=== PATIENT | male | born 1960 | race Caucasian/White ===

== ENCOUNTER 2018-07-05 20:22 | Emergency (ER) | payer MEDICAID ==
[~2018-07-05] VITALS: Ht 177.8 cm; Wt 75.0 kg
[~2018-07-05 20:22] MED LIST: DOCU250C91 PO; FLUO20SO2 PO; MVITFE PO; TRAZ-220 PO
[2018-07-05 21:26] LABS: BASOPHILS % (AUTO) 0.6 % (0.0-2.0); EOSINOPHILS % (AUTO) 1.4 % (1.0-6.0); HEMATOCRIT 38.6 % (41-53); HEMOGLOBIN 13.2 g/dL (13.5-17.5); LYMPHOCYTES # (AUTO) 1.6 K/uL (1.0-4.8); LYMPHOCYTES % (AUTO) 21.9 % (22.0-44.0); MEAN CORPUSCULAR HGB CONC 34.1 G/dL (31.0-37.0); MEAN CORPUSCULAR VOLUME 103 fL (80-100); MONOCYTES # (AUTO) 1.1 K/uL (0.1-1.0); MONOCYTES % (AUTO) 14.8 % (2.0-9.0); NEUTROPHILS # (AUTO) 4.5 K/uL (1.8-7.7); NEUTROPHILS % (AUTO) 61.3 % (40.0-70.0); PLATELET COUNT (AUTO) 271 K/uL (150-450); RED BLOOD CELL COUNT(AUTO) 3.76 MIL/uL (4.50-5.90)
[2018-07-05 21:42] LABS: AMPHET/METH SCREEN,URINE NEGATIVE (NEGATIVE); BARBITURATE SCREEN, URINE NEGATIVE (NEGATIVE); BENZODIAZEPINES SCREEN,URINE NEGATIVE (NEGATIVE); CANNABINOID SCREEN,URINE POSITIVE (NEGATIVE); COCAINE SCREEN,URINE NEGATIVE (NEGATIVE); METHADONE SCREEN, URINE NEGATIVE (NEGATIVE); OPIATE SCREEN,URINE NEGATIVE (NEGATIVE)
[2018-07-05 21:43] LABS: PHENCYCLIDINE SCREEN,URINE NEGATIVE (NEGATIVE)
[2018-07-05 22:26] LABS: ALANINE AMINOTRANSFERASE 66 U/L (12-78); ALBUMIN 3.3 g/dL (3.4-5.0); ALKALINE PHOSPHATASE 130 U/L (46-116); ANION GAP 10 mmol/L (8-16); ASPARTATE AMINOTRANSFERASE 50 U/L (15-37); BILIRUBIN,TOTAL 0.2 mg/dL (0.1-1.0); CALCIUM, TOTAL 9.1 mg/dL (8.8-10.5); CARBON DIOXIDE 30 mmol/L (22-29); CHLORIDE 100 mmol/L (98-107); CREATININE 0.76 mg/dL (0.60-1.30); GLOMERULAR FILTR. RATE CALC > 60 mL/min (>60); GLUCOSE,RANDOM 94 mg/dL (70-110); SODIUM SERUM 140 mmol/L (136-145); TOTAL PROTEIN, SERUM 7.7 g/dL (6.4-8.2); UREA NITROGEN, BLOOD 9 mg/dL (7-18)
[2018-07-05 22:27] LABS: POTASSIUM 2.9 mmol/L (3.5-5.1)
[2018-07-05] MEDS ORDERED: POTASSIUM CHLORIDE 20 MEQ ER TABLET PO ONE (22:45)
[2018-07-05] MEDS ORDERED: LORazepam 1 MG TABLET PO ONE (22:45)
[2018-07-05] MEDS ORDERED: MAGNESIUM SULFATE 2 GM, MVI, ADULT NO.1 WITH VIT K 10 ML, THIAMINE HCL 100 MG, FOLIC AC... IV ONE ×5 (22:45)
[2018-07-06 01:22] VITALS: BP 122/80
== END 2018-07-06 03:02 | disposition home or self-care (01) ==
LOC: EMS 20:23
DX: F41.9 Anxiety disorder, unspecified (principal); E87.6 Hypokalemia; F19.10 Other psychoactive substance abuse, uncomplicated; F10.20 Alcohol dependence, uncomplicated; F17.210 Nicotine dependence, cigarettes, uncomplicated; F32.9 Major depressive disorder, single episode, unspecified; F12.90 Cannabis use, unspecified, uncomplicated; F15.90 Other stimulant use, unspecified, uncomplicated; Y90.3 Blood alcohol level of 60-79 mg/100 ml
CPT/HCPCS: 36415; 80053; 80307; 85025; 96365; 99284; 99406; G0480; J3411; J3475; J3490 ×2; J7030

== ENCOUNTER 2021-08-04 16:32 | Inpatient (IN) | payer MEDICAID ==
[~2021-08-04] VITALS: Ht 177.8 cm; Wt 90.5 kg
[~2021-08-04 16:32] MED LIST changes: +AMLO2.5T96 PO; -DOCU250C91 PO; +FERR-89 PO; -FLUO20SO2 PO; -MVITFE PO; -TRAZ-220 PO; +VENL-67 PO
[2021-08-04] MEDS ORDERED: CYANOCOBALAMIN 1,000 MCG/ML VIAL IM ONE (18:45)
[2021-08-04] MEDS ORDERED: HALOPERIDOL 5 MG TABLET PO PRN (18:45)
[2021-08-04] MEDS ORDERED: LOPERAMIDE HCL 2 MG CAPSULE PO PRN (18:45)
[2021-08-04] MEDS ORDERED: HydrOXYzine PAMOATE 50 MG CAPSULE PO PRN (18:45)
[2021-08-04] MEDS ORDERED: GuaiFENesin/D-METHORPHAN [SUGAR-FREE] 200-20MG/10 ML SYRUP UDCUP PO PRN (18:45)
[2021-08-04] MEDS ORDERED: PNEUMOCOCCAL VACCINE POLYVALENT 0.5 ML VIAL [PPSV23] IM. ONE (19:45)
[2021-08-04] MEDS ORDERED: INFLUENZA VIRUS VACCINE QVS 2021-22 (6MO+)/PF 60 MCG/0.5 ML SYRINGE IM. ONE (19:45)
[2021-08-04 19:54] VITALS: BP 146/99
[2021-08-04 20:05] VITALS: BP 155/95
[2021-08-04] MEDS: THIAMINE 100 MG TABLET PO SCH (20:33)
[2021-08-04] MEDS: LORazepam 2 MG TABLET PO PRN ×2 (20:33→22:44)
[2021-08-04 21:00] VITALS: BP 152/77
[2021-08-04] MEDS ORDERED: NICOTINE 21 MG/24 HOUR PATCH TD ONE (21:15)
[2021-08-04 22:14] VITALS: BP 128/80
[2021-08-04 22:29] LABS: GLUCOMETER DEV NAME(LOC) POC.BV
[2021-08-04 23:03] VITALS: BP 136/85
[2021-08-05] MEDS ORDERED: LORazepam 2 MG TABLET PO PRN (07:00)
[2021-08-05 07:24] LABS: APPEARANCE,URINE TURBID (CLEAR); GLUCOSE, URINE (UA) NEGATIVE (NEGATIVE); KETONES,URINE 15 mg/dL (NEGATIVE); LEUKOCYTE ESTERASE ,URINE NEGATIVE (NEGATIVE); NITRATE,URINE NEGATIVE (NEGATIVE); OCCULT BLOOD,URINE NEGATIVE (NEGATIVE); PROTEIN,URINE NEGATIVE (NEGATIVE); UROBILINOGEN,URINE 0.2 mg/dL (<=1.0)
[2021-08-05 07:27] LABS: BILIRUBIN,URINE PRELIM. POSITIVE (NEGATIVE)
[2021-08-05 07:31] LABS: AMPHET/METH SCREEN,URINE NEGATIVE (NEGATIVE); BARBITURATE SCREEN, URINE NEGATIVE (NEGATIVE); BENZODIAZEPINES SCREEN,URINE NEGATIVE (NEGATIVE); CANNABINOID SCREEN,URINE POSITIVE (NEGATIVE); COCAINE SCREEN,URINE NEGATIVE (NEGATIVE); METHADONE SCREEN, URINE NEGATIVE (NEGATIVE); OPIATE SCREEN,URINE NEGATIVE (NEGATIVE); PHENCYCLIDINE SCREEN,URINE NEGATIVE (NEGATIVE)
[2021-08-05] MEDS: THIAMINE 100 MG TABLET PO SCH ×2 (09:00→16:34)
[2021-08-05] MEDS: AmLODIPine BESYLATE 2.5 MG TABLET PO SCH (09:00)
[2021-08-05] MEDS: FOLIC ACID 1 MG TABLET PO SCH (09:00)
[2021-08-05] MEDS: LORazepam 2 MG TABLET PO SCH ×4 (09:09→20:32)
[2021-08-05] MEDS: MULTIVITAMINS WITH MINERALS, THERAPEUTIC TABLET PO SCH (09:09)
[2021-08-05] MEDS: NICOTINE 21 MG/24 HOUR PATCH TD SCH (09:09)
[2021-08-05 12:15] VITALS: BP 131/78
[2021-08-05] MEDS: SERTRALINE HCL 50 MG TABLET PO SCH (12:37)
[2021-08-05 16:27] VITALS: BP 135/79
[2021-08-05] MEDS: ZOLPIDEM TARTRATE 10 MG TABLET PO PRN (21:01)
[2021-08-06 00:17] VITALS: BP 131/89
[2021-08-06 08:33] VITALS: BP 128/75
[2021-08-06] MEDS: THIAMINE 100 MG TABLET PO SCH ×2 (08:37→16:43)
[2021-08-06] MEDS: NICOTINE 21 MG/24 HOUR PATCH TD SCH (08:37)
[2021-08-06] MEDS: MULTIVITAMINS WITH MINERALS, THERAPEUTIC TABLET PO SCH (08:38)
[2021-08-06] MEDS: AmLODIPine BESYLATE 2.5 MG TABLET PO SCH (08:38)
[2021-08-06] MEDS: LORazepam 2 MG TABLET PO SCH ×4 (08:38→20:38)
[2021-08-06] MEDS: SERTRALINE HCL 50 MG TABLET PO SCH (08:38)
[2021-08-06] MEDS: FOLIC ACID 1 MG TABLET PO SCH (08:38)
[2021-08-06 16:28] VITALS: BP 127/62
[2021-08-06] MEDS: ZOLPIDEM TARTRATE 10 MG TABLET PO PRN (20:55)
[2021-08-07 00:10] VITALS: BP 137/82
[2021-08-07] MEDS ORDERED: LORazepam 1 MG TABLET PO PRN (07:00)
[2021-08-07] MEDS: NICOTINE 21 MG/24 HOUR PATCH TD SCH (09:21)
[2021-08-07] MEDS: MULTIVITAMINS WITH MINERALS, THERAPEUTIC TABLET PO SCH (09:21)
[2021-08-07] MEDS: AmLODIPine BESYLATE 2.5 MG TABLET PO SCH (09:21)
[2021-08-07] MEDS: THIAMINE 100 MG TABLET PO SCH ×2 (09:22→17:06)
[2021-08-07] MEDS: SERTRALINE HCL 50 MG TABLET PO SCH (09:22)
[2021-08-07] MEDS: LORazepam 1 MG TABLET PO SCH ×4 (09:22→20:37)
[2021-08-07] MEDS: FOLIC ACID 1 MG TABLET PO SCH (09:22)
[2021-08-07 09:24] VITALS: BP 109/69
[2021-08-07 16:29] VITALS: BP 126/68
[2021-08-07] MEDS: ZOLPIDEM TARTRATE 10 MG TABLET PO PRN (21:31)
[2021-08-08 06:07] VITALS: BP 129/70
[2021-08-08] MEDS: NICOTINE 21 MG/24 HOUR PATCH TD SCH (08:15)
[2021-08-08] MEDS: MULTIVITAMINS WITH MINERALS, THERAPEUTIC TABLET PO SCH (08:15)
[2021-08-08] MEDS: FOLIC ACID 1 MG TABLET PO SCH (08:15)
[2021-08-08] MEDS: THIAMINE 100 MG TABLET PO SCH ×2 (08:15→16:52)
[2021-08-08] MEDS: AmLODIPine BESYLATE 2.5 MG TABLET PO SCH (08:15)
[2021-08-08] MEDS: SERTRALINE HCL 50 MG TABLET PO SCH (08:15)
[2021-08-08] MEDS: LORazepam 1 MG TABLET PO PRN ×4 (08:16→21:02)
[2021-08-08 08:55] VITALS: BP 118/73
[2021-08-08 16:25] VITALS: BP 112/72
[2021-08-08] MEDS: ZOLPIDEM TARTRATE 10 MG TABLET PO PRN (21:51)
[2021-08-09 05:45] VITALS: BP 120/72
[2021-08-09] MEDS: AmLODIPine BESYLATE 2.5 MG TABLET PO SCH (08:02)
[2021-08-09] MEDS: MULTIVITAMINS WITH MINERALS, THERAPEUTIC TABLET PO SCH (08:02)
[2021-08-09] MEDS: SERTRALINE HCL 50 MG TABLET PO SCH (08:02)
[2021-08-09] MEDS: THIAMINE 100 MG TABLET PO SCH ×2 (08:02→16:24)
[2021-08-09] MEDS: FOLIC ACID 1 MG TABLET PO SCH (08:02)
[2021-08-09 08:04] LABS: COVID AG,FIA SOURCE NASOPHARYNGEAL
[2021-08-09] MEDS: NICOTINE 21 MG/24 HOUR PATCH TD SCH (08:04)
[2021-08-09 09:10] VITALS: BP 134/71
[2021-08-09 16:33] VITALS: BP 121/74
[2021-08-09] MEDS: ZOLPIDEM TARTRATE 10 MG TABLET PO PRN (21:52)
[2021-08-10 03:20] VITALS: BP 124/72
[2021-08-10 08:36] VITALS: BP 119/64
[2021-08-10] MEDS: MULTIVITAMINS WITH MINERALS, THERAPEUTIC TABLET PO SCH (09:20)
[2021-08-10] MEDS: NICOTINE 21 MG/24 HOUR PATCH TD SCH (09:20)
[2021-08-10] MEDS: FOLIC ACID 1 MG TABLET PO SCH (09:20)
[2021-08-10] MEDS: THIAMINE 100 MG TABLET PO SCH ×2 (09:20→16:32)
[2021-08-10] MEDS: AmLODIPine BESYLATE 2.5 MG TABLET PO SCH (09:20)
[2021-08-10] MEDS: SERTRALINE HCL 100 MG TABLET PO SCH (09:21)
[2021-08-10 16:19] VITALS: BP 130/86
[2021-08-10] MEDS: ZOLPIDEM TARTRATE 10 MG TABLET PO PRN (21:13)
[2021-08-11 03:12] VITALS: BP 141/89
[2021-08-11 08:21] VITALS: BP 116/67
[2021-08-11] MEDS: THIAMINE 100 MG TABLET PO SCH ×2 (09:23→16:42)
[2021-08-11] MEDS: AmLODIPine BESYLATE 2.5 MG TABLET PO SCH (09:23)
[2021-08-11] MEDS: NICOTINE 21 MG/24 HOUR PATCH TD SCH (09:23)
[2021-08-11] MEDS: FOLIC ACID 1 MG TABLET PO SCH (09:23)
[2021-08-11] MEDS: SERTRALINE HCL 100 MG TABLET PO SCH (09:23)
[2021-08-11] MEDS: MULTIVITAMINS WITH MINERALS, THERAPEUTIC TABLET PO SCH (09:23)
[2021-08-11 16:24] VITALS: BP 121/82
[2021-08-11] MEDS: HydrOXYzine PAMOATE 50 MG CAPSULE PO PRN (16:45)
[2021-08-11] MEDS: ZOLPIDEM TARTRATE 10 MG TABLET PO PRN (22:05)
[2021-08-12 04:46] VITALS: BP 122/72
[2021-08-12 08:59] VITALS: BP 110/69
[2021-08-12] MEDS: SERTRALINE HCL 100 MG TABLET PO SCH (09:08)
[2021-08-12] MEDS: AmLODIPine BESYLATE 2.5 MG TABLET PO SCH (09:08)
[2021-08-12] MEDS: FOLIC ACID 1 MG TABLET PO SCH (09:08)
[2021-08-12] MEDS: MULTIVITAMINS WITH MINERALS, THERAPEUTIC TABLET PO SCH (09:08)
[2021-08-12] MEDS: THIAMINE 100 MG TABLET PO SCH ×2 (09:08→16:36)
[2021-08-12] MEDS: NICOTINE 21 MG/24 HOUR PATCH TD SCH (09:09)
[2021-08-12] MEDS: HydrOXYzine PAMOATE 50 MG CAPSULE PO PRN (09:32)
[2021-08-12] MEDS ORDERED: LORazepam 1 MG TABLET PO PRN (12:00)
[2021-08-12] MEDS: BusPIRone HCL 5 MG TABLET PO SCH ×3 (12:54→21:00)
[2021-08-12 16:24] VITALS: BP 116/72
[2021-08-12] MEDS: ZOLPIDEM TARTRATE 10 MG TABLET PO PRN (21:28)
[2021-08-13 01:57] VITALS: BP 120/75
[2021-08-13 08:46] VITALS: BP 103/57
[2021-08-13] MEDS: SERTRALINE HCL 100 MG TABLET PO SCH (08:58)
[2021-08-13] MEDS: MULTIVITAMINS WITH MINERALS, THERAPEUTIC TABLET PO SCH (08:58)
[2021-08-13] MEDS: BusPIRone HCL 5 MG TABLET PO SCH ×3 (08:58→20:23)
[2021-08-13] MEDS: NICOTINE 21 MG/24 HOUR PATCH TD SCH (08:59)
[2021-08-13] MEDS: THIAMINE 100 MG TABLET PO SCH ×2 (08:59→16:02)
[2021-08-13] MEDS: FOLIC ACID 1 MG TABLET PO SCH (08:59)
[2021-08-13] MEDS: AmLODIPine BESYLATE 2.5 MG TABLET PO SCH (09:00)
[2021-08-13 16:27] VITALS: BP 101/62
[2021-08-13] MEDS: ZOLPIDEM TARTRATE 10 MG TABLET PO PRN (21:36)
[2021-08-14 00:55] VITALS: BP 129/67
[2021-08-14 09:00] VITALS: BP 106/58
[2021-08-14] MEDS: SERTRALINE HCL 100 MG TABLET PO SCH (10:13)
[2021-08-14] MEDS: AmLODIPine BESYLATE 2.5 MG TABLET PO SCH (10:13)
[2021-08-14] MEDS: FOLIC ACID 1 MG TABLET PO SCH (10:13)
[2021-08-14] MEDS: MULTIVITAMINS WITH MINERALS, THERAPEUTIC TABLET PO SCH (10:13)
[2021-08-14] MEDS: THIAMINE 100 MG TABLET PO SCH (10:13)
[2021-08-14] MEDS: NICOTINE 21 MG/24 HOUR PATCH TD SCH (10:15)
[2021-08-14] MEDS: BusPIRone HCL 5 MG TABLET PO SCH ×3 (10:27→20:42)
[2021-08-14 16:20] VITALS: BP 109/75
[2021-08-14] MEDS: ZOLPIDEM TARTRATE 10 MG TABLET PO PRN ×2 (20:44→21:29)
[2021-08-15 05:31] VITALS: BP 105/68
[2021-08-15 08:30] VITALS: BP 120/63
[2021-08-15] MEDS: NICOTINE 21 MG/24 HOUR PATCH TD SCH (09:21)
[2021-08-15] MEDS: BusPIRone HCL 5 MG TABLET PO SCH (09:22)
[2021-08-15] MEDS: SERTRALINE HCL 100 MG TABLET PO SCH (09:22)
[2021-08-15] MEDS: AmLODIPine BESYLATE 2.5 MG TABLET PO SCH (09:22)
[2021-08-15] MEDS: MULTIVITAMINS WITH MINERALS, THERAPEUTIC TABLET PO SCH (09:22)
[2021-08-15] MEDS ORDERED: BUSP5TAB20 PO ×2 (09:36)
[2021-08-15] MEDS ORDERED: AMLO2.5T96 PO (09:37)
[2021-08-15] MEDS ORDERED: SERT-162 PO (09:38)
== END 2021-08-15 15:20 | disposition home or self-care (01) | DRG 751 ==
LOC: B2S 19:33
DX: F33.2 Major depressive disorder, recurrent severe without psychotic features (principal); R45.851 Suicidal ideations; D64.9 Anemia, unspecified; F10.20 Alcohol dependence, uncomplicated; F12.10 Cannabis abuse, uncomplicated; F17.210 Nicotine dependence, cigarettes, uncomplicated; F41.9 Anxiety disorder, unspecified; I10 Essential (primary) hypertension; J45.909 Unspecified asthma, uncomplicated; Z20.822 Contact with and (suspected) exposure to COVID-19; Z59.00 Homelessness unspecified; Z79.899 Other long term (current) drug therapy
CPT/HCPCS: 80307; 81003; J3420

== ENCOUNTER 2024-02-15 16:39 | Emergency (ER) | payer MEDICAID ==
[~2024-02-15] VITALS: Ht 188 cm; Wt 100.0 kg
[~2024-02-15 16:39] MED LIST changes: +BUSP5TAB20 PO; -FERR-89 PO; +SERT-162 PO; -VENL-67 PO
[2024-02-15 18:22] LABS: BASOPHILS % (AUTO) 0.8 % (0.0-2.0); EOSINOPHILS % (AUTO) 1.4 % (1.0-6.0); HEMATOCRIT 46.1 % (41-53); HEMOGLOBIN 15.3 g/dL (13.5-17.5); LYMPHOCYTES # (AUTO) 1.1 K/uL (1.0-4.8); LYMPHOCYTES % (AUTO) 16.3 % (22.0-44.0); MEAN CORPUSCULAR HEMOGLOBIN 34.2 pg (26.0-34.0); MEAN CORPUSCULAR HGB CONC 33.3 G/dL (31.0-37.0); MEAN CORPUSCULAR VOLUME 103 fL (80-100); MONOCYTES # (AUTO) 0.5 K/uL (0.1-1.0); NEUTROPHILS # (AUTO) 4.8 K/uL (1.8-7.7); NEUTROPHILS % (AUTO) 73.5 % (40.0-70.0); PLATELET COUNT (AUTO) 207 K/uL (150-450); RED BLOOD CELL COUNT(AUTO) 4.48 MIL/uL (4.50-5.90); RED CELL DISTRIBUTION WIDTH 13.5 % (11.5-14.5); WHITE BLOOD COUNT (AUTO) 6.5 K/uL (4.5-11.0)
[2024-02-15 18:27] LABS: ANION GAP 14 mmol/L (8-16); CALCIUM, TOTAL 9.4 mg/dL (8.8-10.5); CARBON DIOXIDE 27 mmol/L (22-29); CHLORIDE 94 mmol/L (98-107); CREATININE 0.69 mg/dL (0.60-1.30); GLOMERULAR FILTR. RATE CALC > 60 mL/min (>60); GLUCOSE,RANDOM 108 mg/dL (70-110); POTASSIUM 3.1 mmol/L (3.5-5.1); SODIUM SERUM 135 mmol/L (136-145); UREA NITROGEN, BLOOD 8 mg/dL (7-18)
[2024-02-15 18:33] LABS: ALANINE AMINOTRANSFERASE 355 U/L (12-78); ALBUMIN 3.7 g/dL (3.4-5.0); ALKALINE PHOSPHATASE 166 U/L (46-116); ASPARTATE AMINOTRANSFERASE 341 U/L (15-37); BILIRUBIN,TOTAL 1.2 mg/dL (0.1-1.0)
[2024-02-15] MEDS: POTASSIUM CHLORIDE 20 MEQ ER TABLET PO ONE (19:59)
[2024-02-15] MEDS ORDERED: CHLO25CA6 PO (20:09)
[2024-02-15 20:15] VITALS: BP 133/78; PULSE 94; RESP 18; TEMP 98.6
== END 2024-02-15 20:37 | disposition home or self-care (01) ==
LOC: EMS 16:39
DX: F10.20 Alcohol dependence, uncomplicated (principal); F32.A Depression, unspecified; F17.210 Nicotine dependence, cigarettes, uncomplicated; F15.90 Other stimulant use, unspecified, uncomplicated; F12.90 Cannabis use, unspecified, uncomplicated; Z98.890 Other specified postprocedural states; Y90.9 Presence of alcohol in blood, level not specified
CPT/HCPCS: 80053; 85025; 99283

== ENCOUNTER 2025-05-17 10:01 | Inpatient (IN) | payer MEDICAID ==
[~2025-05-17] VITALS: Ht 177.8 cm; Wt 98.9 kg
[~2025-05-17 10:01] MED LIST changes: +CHLO25CA6 PO
[2025-05-17 13:05] LABS: GLUCOMETER DEV NAME(LOC) POC.BV; POC SARS-COV2 AG, FIA NEGATIVE (NEGATIVE)
[2025-05-17 17:00] VITALS: BP 115/61; PULSE 90; RESP 18; TEMP 98.6; O2SAT 96
[2025-05-17] MEDS ORDERED: ACETAMINOPHEN 325 MG TABLET PO PRN (17:45)
[2025-05-17] MEDS ORDERED: DOCUSATE SODIUM 100 MG CAPSULE PO PRN (17:45)
[2025-05-17] MEDS ORDERED: IBUPROFEN 600 MG TABLET PO PRN (17:45)
[2025-05-17] MEDS ORDERED: MAGNESIUM HYDROXIDE SUSPENSION 30 ML UDCUP PO PRN (17:45)
[2025-05-17] MEDS ORDERED: BENZOCAINE/MENTHOL [CEPACOL] LOZENGE PO PRN (17:45)
[2025-05-17] MEDS ORDERED: PETROLATUM,WHITE 28 GM JELLY TP PRN (17:45)
[2025-05-17] MEDS ORDERED: ALBUTEROL SULFATE HFA 90 MCG/PUFF 8 GM INHALER IH PRN (17:45)
[2025-05-17] MEDS ORDERED: MAG HYDROX/ALUMINUM HYD/SIMETH ES 30 ML SUSPENSION UDCUP PO PRN (17:45)
[2025-05-17] MEDS ORDERED: BACITRACIN 28 GM OINTMENT TP PRN (17:45)
[2025-05-17] MEDS ORDERED: LOPERAMIDE HCL 2 MG CAPSULE PO PRN (17:45)
[2025-05-17] MEDS ORDERED: OMEPRAZOLE 20 MG CAPSULE PO PRN (17:45)
[2025-05-17] MEDS ORDERED: ONDANSETRON 4 MG TABLET PO PRN (17:45)
[2025-05-17 18:00] VITALS: BP 143/66; PULSE 107; RESP 18; TEMP 98.2; O2SAT 95
[2025-05-17 19:00] VITALS: BP 159/79; PULSE 92; RESP 18; TEMP 98.6; O2SAT 92
[2025-05-17 20:00] VITALS: BP 157/88; PULSE 93; RESP 18; TEMP 98.1; O2SAT 93
[2025-05-17 21:53] VITALS: BP 157/88; PULSE 93; RESP 18; TEMP 98.1; O2SAT 96
[2025-05-18] VITALS (8 sets, daily range): BP systolic 108–128; BP diastolic 72–78; PULSE 71–104; RESP 17–18; TEMP 97.7–98.8; O2SAT 95–98
[2025-05-18] MEDS: NICOTINE 21 MG/24 HOUR PATCH TD SCH (08:19)
[2025-05-18 08:52] LABS: PLATELET COUNT (AUTO) 86 K/uL (150-450); RED BLOOD CELL COUNT(AUTO) 4.24 MIL/uL (4.50-5.90); RED CELL DISTRIBUTION WIDTH 14.4 % (11.5-14.5); WHITE BLOOD COUNT (AUTO) 3.9 K/uL (4.5-11.0)
[2025-05-18 09:15] LABS: ALCOHOL, BLOOD (SERUM) < 3 mg/dL (0-10)
[2025-05-18 09:18] LABS: PLATELET MORPHOLOGY COMMENT LARGE PLTS PRESENT; RBC MORPHOLOGY COMMENT ABNORMAL RBC MORPH
[2025-05-18 09:26] LABS: ASPARTATE AMINOTRANSFERASE 305 U/L (15-37); CALCIUM, TOTAL 9.2 mg/dL (8.8-10.5); CHOL/HDL RATIO 2.1 (4.2-7.3); CREATININE 0.82 mg/dL (0.60-1.30); GLOMERULAR FILTR. RATE CALC > 60 mL/min (>60); GLUCOSE,RANDOM 92 mg/dL (70-110); LDL CHOL (CALC.) 130 mg/dL (0-130); SODIUM SERUM 135 mmol/L (136-145); TOTAL PROTEIN, SERUM 6.9 g/dL (6.4-8.2); UREA NITROGEN, BLOOD 7 mg/dL (7-18)
[2025-05-18] MEDS: ESCITALOPRAM OXALATE 10 MG TABLET PO SCH (12:27)
[2025-05-19 04:07] LABS: HEPATITIS C AB (EIA) Non Reactive (Non Reactive)
[2025-05-19 08:20] VITALS: BP 105/63; PULSE 102; RESP 18; TEMP 98.6; O2SAT 95
[2025-05-19 08:21] VITALS: BP 105/63; PULSE 102; RESP 17; TEMP 98.6; O2SAT 95
[2025-05-19 08:30] LABS: PLATELET COUNT (AUTO) 84 K/uL (150-450); RED BLOOD CELL COUNT(AUTO) 4.12 MIL/uL (4.50-5.90); RED CELL DISTRIBUTION WIDTH 14.6 % (11.5-14.5); WHITE BLOOD COUNT (AUTO) 3.3 K/uL (4.5-11.0)
[2025-05-19 08:32] LABS: PLATELET MORPHOLOGY COMMENT LARGE PLTS PRESENT; RBC MORPHOLOGY COMMENT ABNORMAL RBC MORPH
[2025-05-19 08:52] LABS: APPEARANCE,URINE TURBID (CLEAR); GLUCOSE, URINE (UA) NEGATIVE (NEGATIVE); LEUKOCYTE ESTERASE ,URINE NEGATIVE (NEGATIVE); NITRATE,URINE NEGATIVE (NEGATIVE); OCCULT BLOOD,URINE TRACE (NEGATIVE); PH,URINE DRUG SCREEN 5.5 (5.0-8.0); SPECIFIC GRAVITIY, URINE 1.022 (1.003-1.030)
[2025-05-19 08:52] LABS: ASPARTATE AMINOTRANSFERASE 284 U/L (15-37); CALCIUM, TOTAL 9.3 mg/dL (8.8-10.5); CREATININE 0.69 mg/dL (0.60-1.30); GLOMERULAR FILTR. RATE CALC > 60 mL/min (>60); GLUCOSE,RANDOM 134 mg/dL (70-110); PHOSPHORUS 2.1 mg/dL (2.5-4.9); SODIUM SERUM 138 mmol/L (136-145); TOTAL PROTEIN, SERUM 6.5 g/dL (6.4-8.2); UREA NITROGEN, BLOOD 6 mg/dL (7-18)
[2025-05-19 09:04] LABS: ALCOHOL, URINE DRUG SCREEN NEGATIVE (NEGATIVE); AMPHET/METH SCREEN,URINE NEGATIVE (NEGATIVE); BARBITURATE SCREEN, URINE NEGATIVE (NEGATIVE); CANNABINOID SCREEN,URINE NEGATIVE (NEGATIVE); COCAINE SCREEN,URINE NEGATIVE (NEGATIVE); METHADONE SCREEN, URINE NEGATIVE (NEGATIVE)
[2025-05-19 09:22] LABS: AMORPHOUS SEDIMENT,UR Many /LPF (None Seen); CALCIUM OXALATE CRYSTALS,UR Moderate /LPF (None Seen)
[2025-05-19 23:17] VITALS: BP 131/82; PULSE 111; RESP 18; TEMP 97.6; O2SAT 95
[2025-05-19 23:56] VITALS: BP 131/82; PULSE 111; RESP 18; TEMP 97.6; O2SAT 95
[2025-05-20] MEDS: POTASSIUM CHLORIDE 20 MEQ ER TABLET PO ONE (08:12)
[2025-05-20 08:15] VITALS: BP 116/88; PULSE 96; RESP 16; TEMP 97; O2SAT 96
[2025-05-20 08:29] VITALS: BP 116/88; PULSE 96; RESP 16; TEMP 97; O2SAT 97
[2025-05-20 20:40] VITALS: BP 98/64; PULSE 94; RESP 16; TEMP 97.6; O2SAT 95
[2025-05-21 18:48] VITALS: BP 112/84; PULSE 110; RESP 18; TEMP 97.8; O2SAT 100
[2025-05-21 18:49] VITALS: BP 112/84; PULSE 110; RESP 18; TEMP 97.8; O2SAT 100
[2025-05-21 20:24] VITALS: BP 110/64; PULSE 107; RESP 18; TEMP 99.1; O2SAT 100
[2025-05-21 21:01] VITALS: BP 110/64; PULSE 107; RESP 18; TEMP 99.1; O2SAT 100
[2025-05-22 09:09] VITALS: BP 103/61; PULSE 100; RESP 16; TEMP 98.1; O2SAT 95
[2025-05-22] MEDS: POTASSIUM CHLORIDE 20 MEQ ER TABLET PO ONE (12:33)
[2025-05-22 12:52] VITALS: BP 103/61; PULSE 100; RESP 16; TEMP 98.1; O2SAT 95
[2025-05-22 20:20] VITALS: BP 105/75; PULSE 96; RESP 18; TEMP 97.8; O2SAT 95
[2025-05-22] MEDS: ZOLPIDEM TARTRATE 10 MG TABLET PO PRN (20:54)
[2025-05-23 04:07] LABS: HEPATITIS B CORE IGM Negative (Negative); HEPATITIS C AB (EIA) Non Reactive (Non Reactive)
[2025-05-23 09:01] VITALS: BP 127/80; PULSE 99; RESP 18; TEMP 98.1; O2SAT 90; O2SAT 95
[2025-05-23 20:00] VITALS: RESP 18
[2025-05-23 20:25] VITALS: RESP 18
[2025-05-24 08:45] VITALS: BP 127/80; PULSE 70; RESP 18; TEMP 97.5; O2SAT 96
[2025-05-24 20:21] VITALS: BP 138/90; PULSE 105; RESP 18; TEMP 98.6; O2SAT 95
[2025-05-25] MEDS: ESCITALOPRAM OXALATE 10 MG TABLET PO SCH (08:14)
[2025-05-25 08:26] VITALS: BP 114/77; PULSE 107; RESP 17; TEMP 98.2; O2SAT 91
[2025-05-25 20:00] VITALS: BP 127/90; PULSE 96; RESP 17; TEMP 96.6; O2SAT 96
[2025-05-26 08:41] VITALS: BP 130/79; PULSE 75; RESP 18; TEMP 97.5; O2SAT 97
[2025-05-26 20:23] VITALS: BP 111/81; PULSE 97; RESP 18; TEMP 97.3; O2SAT 95
[2025-05-27 09:08] VITALS: BP 116/72; PULSE 92; RESP 18; TEMP 97.8; O2SAT 97
[2025-05-27 20:29] VITALS: BP 110/68; PULSE 84; RESP 17; TEMP 97.7; O2SAT 98
[2025-05-28 09:07] LABS: APPEARANCE,URINE CLEAR (CLEAR); GLUCOSE, URINE (UA) NEGATIVE (NEGATIVE); LEUKOCYTE ESTERASE ,URINE NEGATIVE (NEGATIVE); NITRATE,URINE NEGATIVE (NEGATIVE); OCCULT BLOOD,URINE NEGATIVE (NEGATIVE); SPECIFIC GRAVITIY, URINE 1.013 (1.003-1.030)
[2025-05-28 09:08] VITALS: BP 126/61; PULSE 88; RESP 17; TEMP 96.9; O2SAT 98
[2025-05-28 20:16] VITALS: BP 129/76; PULSE 76; RESP 16; TEMP 98.2; O2SAT 97
[2025-05-29 08:39] VITALS: BP 95/60; PULSE 99; RESP 16; TEMP 97.9; O2SAT 95
[2025-05-29 20:45] VITALS: BP 112/72; PULSE 80; RESP 17; TEMP 98.2; O2SAT 98
[2025-05-30 08:35] VITALS: BP 123/77; PULSE 86; RESP 17; TEMP 98.1; O2SAT 92
[2025-05-30 20:22] VITALS: BP 126/82; PULSE 70; RESP 18; TEMP 97.8; O2SAT 95
[2025-05-31 08:26] VITALS: BP 113/69; PULSE 82; RESP 18; TEMP 97.2; O2SAT 96
[2025-05-31 22:37] VITALS: BP 122/82; PULSE 74; RESP 16; TEMP 98.6; O2SAT 97
[2025-06-01 08:51] VITALS: BP 109/67; PULSE 84; RESP 17; TEMP 98.6; O2SAT 93
[2025-06-01 20:54] VITALS: BP 98/65; PULSE 87; RESP 17; TEMP 98.2; O2SAT 97
[2025-06-01] MEDS: PNEUMOCOCCAL VACCINE POLYVALENT 0.5 ML SYRINGE [PPSV23] IM. ONE (21:00)
[2025-06-02 08:33] VITALS: BP 132/70; PULSE 78; RESP 18; TEMP 97; O2SAT 96
[2025-06-02 20:38] VITALS: BP 108/80; PULSE 81; RESP 17; TEMP 97.7; O2SAT 97
[2025-06-03 08:39] VITALS: BP 106/73; PULSE 93; RESP 17; TEMP 98.2; O2SAT 97
[2025-06-03 18:12] VITALS: BP 116/76; PULSE 100; RESP 18; TEMP 98.6; O2SAT 95
[2025-06-04 14:53] VITALS: BP 120/76; PULSE 84; RESP 18; TEMP 97.3; O2SAT 97
[2025-06-04 21:05] VITALS: BP 131/83; PULSE 87; RESP 18; TEMP 98.1; O2SAT 95
[2025-06-05 09:02] VITALS: BP 122/77; PULSE 93; RESP 15; TEMP 98.2; O2SAT 95
[2025-06-05] MEDS ORDERED: TRAZ-252 PO (18:39)
[2025-06-05] MEDS ORDERED: ESCI-8 PO (18:39)
[2025-06-05 20:32] VITALS: BP 110/71; PULSE 66; RESP 18; TEMP 97.9; O2SAT 97
== END 2025-06-06 12:01 | disposition home or self-care (01) | DRG 751 ==
LOC: B2S 12:37
PROVIDERS: ADMIT Psychiatry & Neurology Psychiatry; ATTEND Psychiatry & Neurology Psychiatry
PROC: GZHZZZZ Group Psychotherapy (ICD-10-PCS; principal; 2025-05-18)
PROC: GZ52ZZZ Individual Psychotherapy, Cognitive (ICD-10-PCS; 2025-05-19)
DX: F33.2 Major depressive disorder, recurrent severe without psychotic features (principal); R45.851 Suicidal ideations; D64.9 Anemia, unspecified; Y90.0 Blood alcohol level of less than 20 mg/100 ml; F10.239 Alcohol dependence with withdrawal, unspecified; Z20.822 Contact with and (suspected) exposure to COVID-19; F41.9 Anxiety disorder, unspecified; I10 Essential (primary) hypertension; J44.9 Chronic obstructive pulmonary disease, unspecified; G47.00 Insomnia, unspecified; K59.00 Constipation, unspecified; Z72.0 Tobacco use; Z79.899 Other long term (current) drug therapy
CPT/HCPCS: 80053; 80061; 80074; 80307; 81001; 81003; 83036; 83735; 84100; 84132; 84436; 84443; 85025; 86592; 86803; 87340; G0480